=== PATIENT | female | born 1955 | race African-American/Black ===

== ENCOUNTER → 2016-10-13 | Outpatient (CLI) | payer OTHER ==
[~2016-10-13] MED LIST: CYMB60CA; DOXE150C7; DYAZ37.5; ESZO3TAB4; HYDR-3366 PO; LYRI100C; METF500T; TRAZ100T4; ULTR50TA5
[2016-10-13 09:49] LABS: AUTOMATED NEUTROPHIL # 4.1 TH/MM3 (1.8-7.7); BASOPHIL # 0.1 TH/MM3 (0-0.2); BASOPHIL % 0.9 % (0.0-2.0); EOSINOPHIL # 0.2 TH/MM3 (0-0.4); EOSINOPHIL % 2.3 % (0.0-4.0); HEMATOCRIT 35.9 % (35.0-46.0); HEMO FLAGS DIFF FINAL; LYMPH % 41.3 % (9.0-44.0); LYMPHOCYTE # 3.6 TH/MM3 (1.0-4.8); MEAN CELL VOLUME 84.9 FL (80.0-100.0); MEAN CORPUSCULAR HEMOGLOBIN 28.1 PG (27.0-34.0); MEAN CORPUSCULAR HGB CONC 33.1 % (32.0-36.0); MONO % 7.8 % (0.0-8.0); NEUT % 47.7 % (16.0-70.0); PLATELET COUNT 324 TH/MM3 (150-450); RED BLOOD COUNT 4.23 MIL/MM3 (4.00-5.30); RED CELL DISTRIBUTION WIDTH 14.2 % (11.6-17.2); WHITE BLOOD COUNT 8.7 TH/MM3 (4.0-11.0)
[2016-10-13 10:04] LABS: AMPHETAMINE, URINE NEG (NEG); BARBITURATES, URINE NEG (NEG); COCAINE, URINE NEG (NEG)
[2016-10-13 10:15] LABS: ALKALINE PHOSPHATASE 114 U/L (45-117); ALT (GPT) 22 U/L (10-53); ANION GAP 8 MEQ/L (5-15); AST (GOT) 13 U/L (15-37); BICARBONATE 26.2 MEQ/L (21.0-32.0); BLOOD UREA NITROGEN 16 MG/DL (7-18); CHLORIDE 103 MEQ/L (98-107); FREE T4 1.07 NG/DL (0.76-1.46); GLOMERULAR FILTRATION RATE 46 ML/MIN (>89); GLUCOSE,FASTING 98 MG/DL (74-99); LDL CHOLESTEROL 125 MG/DL (0-99); SODIUM (NA) 137 MEQ/L (136-145); TOTAL BILIRUBIN ADULT 0.2 MG/DL (0.2-1.0)
[2016-10-13 13:32] LABS: HEMOGLOBIN A1a 1.6 %; HEMOGLOBIN A1b 2.2 %; HEMOGLOBIN Ao 83.6 %; HEMOGLOBIN P3 3.8 %
== END ==
LOC: CLAB 09:16
DX: Z79.899 Other long term (current) drug therapy (principal)
CPT/HCPCS: 36415; 80053; 80061; 80307; 83036; 84439; 84443; 85025

== ENCOUNTER 2017-03-04 10:58 | Inpatient (IN) | payer SELFPAY ==
[2017-03-04] VITALS (10 sets, daily range): BP systolic 112–155; BP diastolic 59–95; PULSE 101–127; RESP 20–26; TEMP 97.4–100.6; O2SAT 87–95
[~2017-03-04] VITALS: Ht 170.2 cm; Wt 104.7 kg
[2017-03-04] MEDS ORDERED: ESZO1TAB PO (11:13)
[2017-03-04] MEDS ORDERED: cefTRIAXone INJ 1,000 MG in SODIUM CHLORIDE 0.9% INJ 100 ML IV ONE (11:30)
[2017-03-04] MEDS ORDERED: SODIUM CHLORIDE 0.9% FLUSH 10 ML FLUSH IVF PRN (11:30)
[2017-03-04] MEDS ORDERED: AZITHROMYCIN INJ 500 MG in SODIUM CHLOR 0.9% 250 ML INJ 250 ML IV ONE (11:30)
[2017-03-04] MEDS ORDERED: methylPREDNISolone SOD SUCC 125 MG/2 ML VIAL IVP ONE (11:30)
--- NOTE | 2017-03-04 11:34 | PD ---
HPI Chief Complaint: Cold / Flu Symptoms Time Seen by Provider: 11:26 Travel History International Travel<30 days: No Contact w/Intl Traveler<30days: No Traveled to known affect area: No History of Present Illness HPI Patient presents with complaints of shortness of breath and productive cough productive of green phlegm. Subjective fever. History of COPD. Continues to smoke a pack per day. Denies nausea vomiting or diarrhea. No new rashes. Initial O2 sat of 87%. History of diabetes. Compliant with metformin. Patient has O2 at home 1 L to use as needed. PFSH Past Medical History Asthma: Yes Anxiety: Yes Depression: Yes Cancer: No Cardiovascular Problems: No COPD: Yes Diabetes: Yes Diminished Hearing: No Endocrine: Yes Genitourinary: No Hepatitis: No Hiatal Hernia: No Herniated Disk: Yes Hypertension: Yes Immune Disorder: No Neurologic: No Psychiatric: Yes (anxiety and depression at times) Reproductive: No Respiratory: Yes (copd) Pneumonia: Yes Thyroid Disease: No Menopausal: Yes : 3 Para: 4 Tubal Ligation: Yes Past Surgical History AICD: No Body Medical Devices: hardware in the left ankle Section: Yes (x 2) Gynecologic Surgery: Yes Joint Replacement: No Pacemaker: No Other Surgery: No Social History Alcohol Use: No Tobacco Use: Yes (1 PPD) Substance Use: No Allergies-Medications (Allergen,Severity, Reaction): Coded Allergies: *MDRO Multi-Drug Resistant Organism (Verified Adverse Reaction, Unknown, ) MRSA PCR (nares) negative - 12/03/15 & 12/06/15. Cleared per Infection Control MRSA (leg wound) - 05/24/04 Reported Meds & Prescriptions Reported Meds & Active Scripts Active Reported Lunesta (Eszopiclone) 2 Mg Tab 3 Mg PO HS PRN Celestine (Hydrocodone-Acetaminophen) 10-325 Mg Tab 1 Tab PO Q6H PRN Lyrica (Pregabalin) 100 Mg Cap Doxepin (Doxepin HCl) [address] (Duloxetine HCl) 60 Mg Capdr Dyazide (Triamterene-Hydrochlorothiazide) 37.5-25 Mg Cap Review of Systems General / Constitutional: No: Fever Eyes: No: Visual changes HENT: No: Headaches Cardiovascular: No: Chest Pain or Discomfort Respiratory: Positive: Cough, Shortness of Breath Gastrointestinal: No: Abdominal Pain Genitourinary: No: Dysuria Musculoskeletal: No: Pain Skin: No Rash Neurologic: No: Weakness Psychiatric: No: Depression Endocrine: No: Polydipsia Hematologic/Lymphatic: No: Easy Bruising Physical Exam Narrative GENERAL: Well-nourished, well-developed patient. Ill-appearing SKIN: Focused skin assessment warm/dry. HEAD: Normocephalic. EYES: No scleral icterus. No injection or drainage. NECK: Supple, trachea midline. No JVD or lymphadenopathy. CARDIOVASCULAR: Regular rate and rhythm without murmurs, gallops, or rubs. RESPIRATORY: Decreased breath sounds right lower lobe. No accessory muscle use. GASTROINTESTINAL: Abdomen soft, non-tender, nondistended. MUSCULOSKELETAL: No cyanosis, or edema. BACK: Nontender without obvious deformity. No CVA tenderness. Data Data Last Documented VS Vital Signs Date Time Temp Pulse Resp B/P Pulse Ox O2 Delivery O2 Flow Rate FiO2 03/04/17 11:48 94 Nasal Cannula 3.00 03/04/17 11:20 22 03/04/17 11:01 98.8 127 149/63 Orders Complete Blood Count With Diff (03/04/17 11:26) Comprehensive Metabolic Panel (03/04/17 11:26) B-Type Natriuretic Peptide (03/04/17 11:26) D-Dimer (03/04/17 11:26) Blood Culture (03/04/17 11:26) Iv Access Insert/Monitor (03/04/17 11:26) Ecg Monitoring (03/04/17 11:26) Oximetry (03/04/17 11:26) Oxygen Administration (03/04/17 11:26) Chest, Single Ap (03/04/17 11:26) Sodium Chloride 0.9% Flush (Ns Flush) (03/04/17 11:30) Methylprednisolone So Succ Inj (Solumedr (03/04/17 11:30) Albuterol Neb (Albuterol Neb) (03/04/17 11:30) Lactic Acid Sepsis Protocol (03/04/17 11:26) Azithromycin Inj (Zithromax Inj) (03/04/17 11:30) Ceftriaxone Inj (Rocephin Inj) (03/04/17 11:30) Electrocardiogram (03/04/17 ) Labs Laboratory Tests Test 03/04/17 11:20 White Blood Count 16.4 TH/MM3 Red Blood Count 4.41 MIL/MM3 Hemoglobin 12.0 GM/DL Hematocrit 36.6 % Mean Corpuscular Volume 83.0 FL Mean Corpuscular Hemoglobin 27.2 PG Mean Corpuscular Hemoglobin 32.8 % Concent Red Cell Distribution Width 14.6 % Platelet Count 299 TH/MM3 Mean Platelet Volume 8.5 FL Neutrophils (%) (Auto) 78.5 % Lymphocytes (%) (Auto) 13.9 % Monocytes (%) (Auto) 6.9 % Eosinophils (%) (Auto) 0.3 % Basophils (%) (Auto) 0.4 % Neutrophils # (Auto) 12.9 TH/MM3 Lymphocytes # (Auto) 2.3 TH/MM3 Monocytes # (Auto) 1.1 TH/MM3 Eosinophils # (Auto) 0.0 TH/MM3 Basophils # (Auto) 0.1 TH/MM3 CBC Comment DIFF FINAL Differential Comment Sodium Level 140 MEQ/L Potassium Level 4.2 MEQ/L Chloride Level 105 MEQ/L Carbon Dioxide Level 26.5 MEQ/L Anion Gap 9 MEQ/L Blood Urea Nitrogen 10 MG/DL Random Glucose 131 MG/DL Calcium Level 8.8 MG/DL Albumin 3.2 GM/DL [facility] Medical Decision Making Medical Screen Exam Complete: Yes Emergency Medical Condition: Yes Differential Diagnosis COPD exacerbation, pneumonia, respiratory failure Narrative Course Assessment and plan discussed with patient at bedside. EKG reveals sinus tachycardia rate of 117. Chest x-ray shows early pneumonia right lower lobe. Elevated white count noted. Sepsis Criteria SIRS Criteria (2 or more): Heart rate over 90, WBC > 63643, < 4000 or > 10% bands Physician Communication Physician Communication Spoke with Dr. Richards who is in agreement will admit Diagnosis Primary Impression: Pneumonia Qualified Code: J18.1 - Pneumonia of right lower lobe due to infectious organism Tyrone Plummer MD Mar 04, 2017 11:34
[2017-03-04] MEDS: RESP: ALBUTEROL 2.5 MG/3 ML NEB (SCH) INH (11:45)
[2017-03-04 11:47] LABS: AUTOMATED NEUTROPHIL # 12.9 TH/MM3 (1.8-7.7); BASOPHIL # 0.1 TH/MM3 (0-0.2); BASOPHIL % 0.4 % (0.0-2.0); EOSINOPHIL % 0.3 % (0.0-4.0); HEMATOCRIT 36.6 % (35.0-46.0); LYMPH % 13.9 % (9.0-44.0); LYMPHOCYTE # 2.3 TH/MM3 (1.0-4.8); MEAN CORPUSCULAR HEMOGLOBIN 27.2 PG (27.0-34.0); MEAN CORPUSCULAR HGB CONC 32.8 % (32.0-36.0); MONO % 6.9 % (0.0-8.0); NEUT % 78.5 % (16.0-70.0); PLATELET COUNT 299 TH/MM3 (150-450); RED BLOOD COUNT 4.41 MIL/MM3 (4.00-5.30); RED CELL DISTRIBUTION WIDTH 14.6 % (11.6-17.2); WHITE BLOOD COUNT 16.4 TH/MM3 (4.0-11.0)
--- NOTE | 2017-03-04 11:52 | RADRPT ---
EXAM DATE/TIME: 03/04/2017 11:43 [place] COMPARISON: CHEST SINGLE AP, December 08, 2015, 5:19. INDICATIONS : Short of breath, cough MEDICAL HISTORY : Chronic obstructive pulmonary disease. Diabetes mellitus type II. SURGICAL HISTORY : None. ENCOUNTER: Initial ACUITY: 1 week PAIN SCORE: 0/10 LOCATION: Bilateral chest FINDINGS: A single AP erect portable view of the chest was obtained and demonstrates patchy opacity at the righ t lung base. The left lung appears clear. The heart size is mildly prominent. Overlying electrocardio gram leads are noted. The costophrenic angles are not well visualized. The bony thorax is intact. CONCLUSION: Patchy opacity at the right lung base of concern for early pneumonia. Jonathan Black MD on March 04, 2017 at 11:50 Board Certified Radiologist. This report was verified electronically.
[2017-03-04 11:53] LABS: HEMO FLAGS DIFF FINAL
[2017-03-04 11:58] LABS: CHLORIDE 105 MEQ/L (98-107); POTASSIUM 4.2 MEQ/L (3.5-5.1); SODIUM (NA) 140 MEQ/L (136-145)
[2017-03-04] MEDS ORDERED: ACETAMINOPHEN 325 MG TAB PO PRN ×2 (12:00→12:15)
[2017-03-04] MEDS ORDERED: ACETAMINOPHEN 650 MG SUPP PR PRN (12:00)
[2017-03-04 12:01] LABS: ANION GAP 9 MEQ/L (5-15); BICARBONATE 26.5 MEQ/L (21.0-32.0)
[2017-03-04 12:02] LABS: BLOOD UREA NITROGEN 10 MG/DL (7-18)
[2017-03-04 12:04] LABS: ALT (GPT) 29 U/L (10-53)
[2017-03-04 12:05] LABS: AST (GOT) 27 U/L (15-37); GLOMERULAR FILTRATION RATE 51 ML/MIN (>89)
[2017-03-04 12:06] LABS: TOTAL BILIRUBIN ADULT 0.7 MG/DL (0.2-1.0)
[2017-03-04 12:08] LABS: ALKALINE PHOSPHATASE 138 U/L (45-117)
[2017-03-04] MEDS ORDERED: SODIUM CHLORIDE 0.9% FLUSH 10 ML FLUSH IV FLUSH PRN (12:15)
[2017-03-04] MEDS ORDERED: ONDANSETRON HCL 4 MG/2 ML VIAL IV PRN (12:15)
[2017-03-04] MEDS ORDERED: guaiFENesin/DEXTROMETHORPHAN 200 MG/20 MG/10 ML CUP PO PRN (12:15)
[2017-03-04] MEDS: HEPARIN SODIUM - SQ 10,000 UNITS/ML VIAL SQ SCH (12:16)
[2017-03-04] MEDS: RESP: ALBUTEROL 2.5 MG/IPRATROPIUM 0.5 MG NEB (PRN) INH ×3 (15:35→23:00)
[2017-03-04] MEDS ORDERED: CYMB60CA PO (16:07)
[2017-03-04] MEDS ORDERED: GLUCAGON 1 MG/ML VIAL OTHER PRN (16:15)
[2017-03-04] MEDS ORDERED: DEXTROSE 50% IN WATER 50 ML VIAL(D50) IV PRN (16:15)
--- NOTE | 2017-03-04 16:15 | HHI.HP ---
HPI Service [facility] Primary Care Physician No Primary Care Physician Admission Diagnosis pneumonia Diagnoses: Chief Complaint: Shortness of breath Travel History International Travel<30 Days: No Contact w/Intl Traveler <30 Da: No Traveled to Known Affected Are: No History of Present Illness 61-year-old female with a medical history significant for COPD, diabetes, lifelong tobacco abuser presents with complaint of shortness of breath and productive green sputum for the past couple of days. Patient report chills last night. Subjective fevers. She continues to smoke 1 pack per day. Symptoms worsen this morning which prompted the emergency room visit. On arrival she was hypoxemic with O2 saturation at 87%. She uses oxygen at home as needed. She denies chest pain. Review of Systems Constitutional: COMPLAINS OF: Fever, Chills Respiratory: COMPLAINS OF: Cough, Sputum production, Shortness of breath Cardiovascular: DENIES: Chest pain, Palpitations Except as stated in HPI: all other systems reviewed are Neg Past Family Social History Past Medical History COPD Diabetes Tobacco abuse Past Surgical History Neck surgery Left foot surgery Reported Medications Reported Meds & Active Scripts Active Reported Lunesta (Eszopiclone) 2 Mg Tab 3 Mg PO HS PRN [place] (Hydrocodone-Acetaminophen) 10-325 Mg Tab 1 Tab PO Q6H PRN Lyrica (Pregabalin) 100 Mg Cap Doxepin (Doxepin HCl) [address] (Duloxetine HCl) 60 Mg Capdr Dyazide (Triamterene-Hydrochlorothiazide) 37.5-25 Mg Cap Allergies: Coded Allergies: *MDRO Multi-Drug Resistant Organism (Verified Adverse Reaction, Unknown, ) MRSA PCR (nares) negative - 12/03/15 & 12/06/15. Cleared per Infection Control MRSA (leg wound) - 05/24/04 Family History Reviewed and noncontributory Social History Smoke 1 pack of cigarettes per day, denies alcohol or illicit drugs. Physical Exam Vital Signs Vital Signs Date Time Temp Pulse Resp B/P Pulse Ox O2 Delivery O2 Flow Rate FiO2 03/04/17 14:14 97.4 105 21 134/76 93 03/04/17 13:13 98.0 110 20 112/60 94 Nasal Cannula 3 03/04/17 12:20 100.6 112 22 120/60 94 Nasal Cannula 3 03/04/17 12:09 116 26 119/59 94 Nasal Cannula 3 03/04/17 11:48 94 Nasal Cannula 3.00 03/04/17 11:20 93 Nasal Cannula 3 03/04/17 11:20 22 93 Nasal Cannula 3 03/04/17 11:20 20 93 Nasal Cannula 3 03/04/17 11:01 98.8 127 149/63 87 Physical Exam GENERAL: This is a well-nourished, well-developed patient, in no apparent distress. SKIN: No rashes, ecchymoses or lesions. Cool and dry. HEAD: Atraumatic. Normocephalic. No temporal or scalp tenderness. EYES: Pupils equal round and reactive. Extraocular motions intact. No scleral icterus. No injection or drainage. ENT: Nose without bleeding, purulent drainage or septal hematoma. Throat without erythema, tonsillar hypertrophy or exudate. Uvula midline. Airway patent. NECK: Trachea midline. No JVD or lymphadenopathy. Supple, nontender, no meningeal signs. CARDIOVASCULAR: Regular rate and rhythm without murmurs, gallops, or rubs. RESPIRATORY: Diminished breath sounds bilaterally. There are some prominent rhonchi at the right base. No wheezing GASTROINTESTINAL: Abdomen soft, non-tender, nondistended. No hepato-splenomegaly , or palpable masses. No guarding. MUSCULOSKELETAL: Extremities without clubbing, cyanosis, or edema. No joint tenderness, effusion, or edema noted. No calf tenderness. Negative Homans sign bilaterally. NEUROLOGICAL: Awake and alert. Cranial nerves II through XII intact. Motor and sensory grossly within normal limits. Five out of 5 muscle strength in all muscle groups. Normal speech. Laboratory Laboratory Tests Test 03/04/17 03/04/17 11:20 11:25 White Blood Count 16.4 Red Blood Count 4.41 Hemoglobin 12.0 Hematocrit 36.6 Mean Corpuscular Volume 83.0 Mean Corpuscular Hemoglobin 27.2 Mean Corpuscular Hemoglobin 32.8 Concent Red Cell Distribution Width 14.6 Platelet Count 299 Mean Platelet Volume 8.5 Neutrophils (%) (Auto) 78.5 Lymphocytes (%) (Auto) 13.9 Monocytes (%) (Auto) 6.9 Eosinophils (%) (Auto) 0.3 Basophils (%) (Auto) 0.4 Neutrophils # (Auto) 12.9 Lymphocytes # (Auto) 2.3 Monocytes # (Auto) 1.1 Eosinophils # (Auto) 0.0 Basophils # (Auto) 0.1 CBC Comment DIFF FINAL Differential Comment D-Dimer Quantitative (PE/DVT) 1.54 Sodium Level 140 Potassium Level 4.2 Chloride Level 105 Carbon Dioxide Level 26.5 Anion Gap 9 Blood Urea Nitrogen 10 Creatinine 1.30 Estimat Glomerular Filtration 51 Rate Random Glucose 131 Calcium Level 8.8 Total Bilirubin 0.7 Aspartate Amino Transf 27 (AST/SGOT) Alanine Aminotransferase 29 (ALT/SGPT) Alkaline Phosphatase 138 B-Type Natriuretic Peptide 23 Total Protein 8.8 Albumin 3.2 Lactic Acid Level 0.9 Date/Time Procedure Status Source Growth 03/04/17 13:14 Gram Stain Received Sputum Expectorated Sputum Pending 03/04/17 13:14 Sputum Culture Received Sputum Expectorated Sputum Pending 03/04/17 11:25 Aerobic Blood Culture Received Blood Peripheral Pending 03/04/17 11:25 Anaerobic Blood Culture Received Blood Peripheral Pending Result Diagram: 03/04/17 1120 03/04/17 1120 Imaging Last Impressions Chest X-Ray 03/04/17 1126 Signed Impressions: Service Date/Time: Saturday, March 04, 2017 11:43 - CONCLUSION: Patchy opacity at the right lung base of concern for early pneumonia. Jonathan Black MD Assessment and Plan Problem List: (1) Pneumonia ICD Code: J18.9 Status: Acute Plan: Community-acquired pneumonia. Chest x-ray images reviewed. Right lung base opacity noted. Continue Rocephin and azithromycin. Follow blood and sputum cultures Supplemental oxygen as needed. Breathing treatments as needed. Incentive spirometry. (2) Hypertension ICD Code: I10 Status: Acute Plan: Blood pressure within normal limits. Continue to monitor. Will introduce antihypertensives if needed. (3) Diabetes ICD Code: E11.9 Status: Acute Plan: Patient reports she was previously on metformin but was taken because of her kidney functions. Sliding scale insulin with Accu-Cheks Check hemoglobin A1c. (4) CKD (chronic kidney disease) ICD Code: N18.9 Status: Acute Physician Certification 2 Midnight Certification Type: Admission for Inpatient Services Order for Inpatient Services The services are ordered in accordance with Medicare regulations or non- Medicare payer requirements, as applicable. In the case of services not specified as inpatient-only, they are appropriately provided as inpatient services in accordance with the 2-midnight benchmark. Estimated LOS (days): 2 days is the estimated time the patient will need to remain in the hospital, assuming treatment plan goals are met and no additional complications. Post-Hospital Plan: Home Problem Qualifiers (1) Pneumonia: Qualified Code: J18.1 - Pneumonia of right lower lobe due to infectious organism (2) CKD (chronic kidney disease): Qualified Code: N18.3 - Stage 3 chronic kidney disease Nish Richards MD Mar 04, 2017 16:15
[2017-03-04] MEDS ORDERED: ESZOPICLONE 3 MG TAB PO PRN (16:45)
[2017-03-04] MEDS: ACETAMINOPHEN/HYDROcodone 325 MG/10 MG TAB PO PRN (19:55)
[2017-03-04] MEDS: SODIUM CHLORIDE 0.9% FLUSH 10 ML FLUSH IV FLUSH SCH (19:56)
[2017-03-04] MEDS ORDERED: DOXEPIN HCL 50 MG CAP PO SCH (21:00)
[2017-03-04] MEDS: INSULIN ASPART SUPPLEMENTAL SCALE SQ SCH (21:01)
[2017-03-05] MEDS: HEPARIN SODIUM - SQ 10,000 UNITS/ML VIAL SQ SCH (00:49)
[2017-03-05 01:04] VITALS: BP 152/83; PULSE 113; RESP 26; TEMP 96.7; O2SAT 90
[2017-03-05 04:14] VITALS: BP 121/69; PULSE 95; RESP 24; TEMP 96.4; O2SAT 97
[2017-03-05] MEDS: INSULIN ASPART SUPPLEMENTAL SCALE SQ SCH (06:16)
[2017-03-05] MEDS: ACETAMINOPHEN/HYDROcodone 325 MG/10 MG TAB PO PRN ×2 (06:19→10:15)
[2017-03-05 06:50] LABS: POTASSIUM 4.7 MEQ/L (3.5-5.1)
[2017-03-05 06:54] LABS: AUTOMATED NEUTROPHIL # 14.4 TH/MM3 (1.8-7.7); BASOPHIL % 0.2 % (0.0-2.0); BICARBONATE 27.6 MEQ/L (21.0-32.0); EOSINOPHIL # 0.1 TH/MM3 (0-0.4); EOSINOPHIL % 0.9 % (0.0-4.0); HEMATOCRIT 36.2 % (35.0-46.0); LYMPH % 8.5 % (9.0-44.0); LYMPHOCYTE # 1.4 TH/MM3 (1.0-4.8); MEAN CELL VOLUME 83.8 FL (80.0-100.0); MEAN CORPUSCULAR HEMOGLOBIN 27.3 PG (27.0-34.0); MEAN CORPUSCULAR HGB CONC 32.5 % (32.0-36.0); NEUT % 86.4 % (16.0-70.0); PLATELET COUNT 305 TH/MM3 (150-450); RED BLOOD COUNT 4.32 MIL/MM3 (4.00-5.30); RED CELL DISTRIBUTION WIDTH 15.1 % (11.6-17.2); WHITE BLOOD COUNT 16.6 TH/MM3 (4.0-11.0)
[2017-03-05 07:07] LABS: HEMO FLAGS DIFF FINAL
[2017-03-05 07:30] VITALS: O2SAT 94
[2017-03-05 08:00] VITALS: BP 157/81; PULSE 104; RESP 20; TEMP 97.5; O2SAT 94
[2017-03-05] MEDS: SODIUM CHLORIDE 0.9% FLUSH 10 ML FLUSH IV FLUSH SCH (08:36)
[2017-03-05] MEDS ORDERED: AZITHROMYCIN 250 MG TAB PO SCH (09:00)
[2017-03-05] MEDS ORDERED: cefTRIAXone INJ 1,000 MG in SODIUM CHLORIDE 0.9% INJ 100 ML IV SCH (09:00)
[2017-03-05] MEDS ORDERED: DULoxetine HCl DR 60 MG CAP PO SCH (09:00)
--- NOTE | 2017-03-05 09:35 | HHI.PR ---
Subjective Remarks Patient reports she is feeling much better. Ready to go home. Coughing less. No shortness of breath. No fevers or chills. Objective Vitals Vital Signs Date Time Temp Pulse Resp B/P Pulse Ox O2 Delivery O2 Flow Rate FiO2 03/05/17 07:30 94 Nasal Cannula 2.00 03/05/17 07:19 20 03/05/17 04:14 96.4 95 24 121/69 97 03/05/17 01:04 96.7 113 26 152/83 90 03/04/17 20:52 98.0 103 20 142/95 95 03/04/17 19:40 94 Nasal Cannula 2.00 03/04/17 16:00 97.5 101 20 155/80 95 03/04/17 14:14 97.4 105 21 134/76 93 03/04/17 13:13 98.0 110 20 112/60 94 Nasal Cannula 3 03/04/17 12:20 100.6 112 22 120/60 94 Nasal Cannula 3 03/04/17 12:09 116 26 119/59 94 Nasal Cannula 3 03/04/17 11:48 94 Nasal Cannula 3.00 03/04/17 11:20 93 Nasal Cannula 3 03/04/17 11:20 22 93 Nasal Cannula 3 03/04/17 11:20 20 93 Nasal Cannula 3 03/04/17 11:01 98.8 127 149/63 87 I/O 03/04/17 03/04/17 03/04/17 03/05/17 03/05/17 03/05/17 07:00 15:00 23:00 07:00 15:00 23:00 Intake Total 850 ml 0 ml 0 ml 100 ml Balance 850 ml 0 ml 0 ml 100 ml Intake Oral 500 ml IV Total 350 ml 0 ml 0 ml 100 ml # Voids 0 Result Diagram: 03/05/17 0550 03/05/17 0550 Imaging Last Impressions Chest X-Ray 03/04/17 1126 Signed Impressions: Service Date/Time: Saturday, March 04, 2017 11:43 - CONCLUSION: Patchy opacity at the right lung base of concern for early pneumonia. Jonathan Black MD Objective Remarks GENERAL: This is a well-nourished, well-developed patient, in no apparent distress. CARDIOVASCULAR: Normal rate and regular rhythm without murmurs, gallops, or rubs. RESPIRATORY: Good respiratory efforts. Diminished breath sounds at the bases. Otherwise clear to auscultation. GASTROINTESTINAL: Abdomen soft, non-tender, non-distended. Normal active bowel sounds MUSCULOSKELETAL: Extremities without cyanosis, or edema. NEURO: Alert & Oriented x4 to person, place, time, situation. Moves all ext x4 PSYCH: Appropriate mood and affect. A/P Problem List: (1) Pneumonia ICD Code: J18.9 Status: Acute Plan: Community-acquired pneumonia. Chest x-ray images reviewed. Right lung base opacity noted. Patient quickly improved with Rocephin and azithromycin. She can be discharged home to continue antibiotics with Cefuroxime and Azithromycin. (2) Hypertension ICD Code: I10 Status: Acute Plan: Blood pressure acceptable. Patient advised to follow up with PCP (3) Diabetes ICD Code: E11.9 Status: Acute Plan: Patient reports she was previously on metformin but was taken because of her kidney functions. Cr 1.10 Resume Metformin on discharge. Advised follow up outpatient with PCP. (4) CKD (chronic kidney disease) ICD Code: N18.9 Status: Acute Discharge Planning Patient quickly improved and deemed medically stable for discharge. Discharged home in stable condition Follow up with PCP Activity: Regular as tolerated Diet: Diabetic diet Meds: Per med rec Problem Qualifiers (1) Pneumonia: Qualified Code: J18.1 - Pneumonia of right lower lobe due to infectious organism (2) CKD (chronic kidney disease): Qualified Code: N18.3 - Stage 3 chronic kidney disease Nish Richards MD Mar 05, 2017 09:35
[2017-03-05] MEDS ORDERED: CEFU1TAB20 PO (09:41)
[2017-03-05] MEDS ORDERED: AZIT250T3 PO (09:41)
[2017-03-05] MEDS ORDERED: METF500T PO (09:43)
--- NOTE | 2017-03-05 09:44 | HHI.DCPOC ---
Discharge Care Plan Diagnosis: (1) Pneumonia (2) Hypertension (3) Diabetes Goals to Promote Your Health * To prevent worsening of your condition and complications * To maintain your health at the optimal level Directions to Meet Your Goals Take your medications as prescribed Follow your dietary instruction Follow activity as directed Keep your appointments as scheduled Take your immunizations and boosters as scheduled If your symptoms worsen call your PCP, if no PCP go to Urgent Care Center or Emergency Room Smoking is Dangerous to Your Health. Avoid second hand smoke Call the 24-hour hour crisis hotline for domestic abuse at Nish Richards MD Mar 05, 2017 09:44
[2017-03-05] MEDS ORDERED: DOXE150C7 PO (15:39)
--- NOTE | 2017-03-05 16:48 | EKG ---
Date Performed: 03/04/2017 Time Performed: 11:38:46 PTAGE: 61 years EKG: SINUS TACHYCARDIA POSSIBLE LEFT ATRIAL ENLARGEMENT ABNORMAL RHYTHM ECG PREVIOUS TRACING 03/05/2016 17.22.24 Since previous tracing, no significant change noted DOCTOR: Maryan Gaspar Interpretating Date/Time 03/05/2017 16:45:50
[2017-03-05 16:52] LABS: HEMOGLOBIN A1a 1.3 %; HEMOGLOBIN A1b 2.1 %; HEMOGLOBIN Ao 84.1 %; HEMOGLOBIN LA1C 1.7 %; HEMOGLOBIN P3 3.7 %
== END 2017-03-05 10:14 | disposition home or self-care (01) | DRG 190 ==
LOC: PHED 10:58 → PHEDA 12:04 → PH3B 13:45
PROVIDERS: ADMIT Family Medicine; ATTEND Family Medicine
DX: J44.0 Chronic obstructive pulmonary disease with (acute) lower respiratory infection (principal); J18.9 Pneumonia, unspecified organism; I12.9 Hypertensive chronic kidney disease with stage 1 through stage 4 chronic kidney disease, or unspecified chronic kidney disease; N18.9 Chronic kidney disease, unspecified; E11.9 Type 2 diabetes mellitus without complications; F17.210 Nicotine dependence, cigarettes, uncomplicated
CPT/HCPCS: 71010; 80048; 80053; 82948; 83036; 83605; 83880; 85025; 85379; 87040; 87070; 87186; 87205; 93005; 94150; 94640; 94664; 96365; 96375; J0456; J0696; J1644; J1815; J2930; J7050; J7613

== ENCOUNTER 2017-03-05 15:10 | Inpatient (IN) | payer SELFPAY ==
[~2017-03-05] VITALS: Ht 170.2 cm; Wt 111.1 kg
[~2017-03-05 15:10] MED LIST changes: +AZIT250T3 PO; +CEFU1TAB20 PO; -CYMB60CA; +CYMB60CA PO; +ESZO1TAB PO; -ESZO3TAB4; -METF500T; +METF500T PO; -TRAZ100T4; -ULTR50TA5
[2017-03-05] MEDS ORDERED: DOXE150C7 PO (15:39)
[2017-03-05] MEDS ORDERED: MAGNESIUM HYDROXIDE SUSP 30 ML CUP PO PRN (15:45)
[2017-03-05] MEDS ORDERED: LACTULOSE SYRUP 20 GM/30 ML CUP PO PRN (15:45)
[2017-03-05] MEDS ORDERED: NALOXONE HCL 0.4 MG/ML AMP IV PRN (15:45)
[2017-03-05] MEDS ORDERED: ACETAMINOPHEN 325 MG TAB PO PRN (15:45)
[2017-03-05] MEDS ORDERED: SODIUM CHLORIDE 0.9% FLUSH 10 ML FLUSH IV FLUSH PRN (15:45)
[2017-03-05] MEDS ORDERED: BISACODYL 10 MG SUPP RECTAL PRN (15:45)
[2017-03-05] MEDS ORDERED: SENNOSIDES 8.6 MG TAB PO PRN (15:45)
[2017-03-05] MEDS ORDERED: VANCOMYCIN INJ 1,000 MG in SODIUM CHLOR 0.9% 250 ML INJ 250 ML IV SCH (15:45)
--- NOTE | 2017-03-05 15:59 | HHI.HP ---
[facility] Phys[facility] Non-Staff Admission Diagnosis Diagnoses: Chief Complaint: Bacteremia Travel History International Travel<30 Days: No Contact w/Intl Traveler <30 Da: No History of Present Illness 61 Y/O female admitted yesterday for pneumonia. The patient quickly improved and was discharged earlier today. However he 2/ blood cultures came back positive for gram pos. cocci. Patient was called back for readmission for IV antibiotics, follow up blood cultures and ID consult. Refer to H&P from yesterday for details. Past Family Social History Past Medical History COPD Diabetes Tobacco abuse Past Surgical History Neck surgery Left foot surgery Allergies: Coded Allergies: *MDRO Multi-Drug Resistant Organism (Verified Adverse Reaction, Unknown, ) MRSA PCR (nares) negative - 12/03/15 & 12/06/15. Cleared per Infection Control MRSA (leg wound) - 05/24/04 Social History Smoke 1 pack of cigarettes per day, denies alcohol or illicit drugs. Physical Exam Physical Exam GENERAL: This is a well-nourished, well-developed patient, in no apparent distress. CARDIOVASCULAR: Normal rate and regular rhythm without murmurs, gallops, or rubs. RESPIRATORY: Good respiratory efforts. Diminished breath sounds at the bases. Otherwise clear to auscultation. GASTROINTESTINAL: Abdomen soft, non-tender, non-distended. Normal active bowel sounds MUSCULOSKELETAL: Extremities without cyanosis, or edema. NEURO: Alert & Oriented x4 to person, place, time, situation. Moves all ext x4 PSYCH: Appropriate mood and affect. Assessment and Plan Problem List: (1) Pneumonia ICD Code: J18.9 Status: Acute (2) Bacteremia ICD Code: R78.81 Status: Acute Assessment and Plan 61 Y/O female with: Pneumonia Community-acquired pneumonia. Chest x-ray images reviewed. Right lung base opacity noted. Patient quickly improved with Rocephin and azithromycin. She was discharged earlier today, However her blood cultures growing gram pos cocci. Continue Rocephin, add Vanc until further speciation of cultures. Consult ID. Breathing treatment and supplemental oxygen as needed. Bacteremia: Source is probably pneumonia. Consult ID. Continue Rocephin, add Vanc until further speciation of cultures. Consult ID. Hypertension Blood pressure acceptable. Continue to monitor Diabetes SSI with accuchecks. A1C pending. CKD (chronic kidney disease) Stable. Avoid nephrotoxins. Physician Certification 2 Midnight Certification Type: Admission for Inpatient Services Order for Inpatient Services The services are ordered in accordance with Medicare regulations or non- Medicare payer requirements, as applicable. In the case of services not specified as inpatient-only, they are appropriately provided as inpatient services in accordance with the 2-midnight benchmark. Estimated LOS (days): 3 days is the estimated time the patient will need to remain in the hospital, assuming treatment plan goals are met and no additional complications. Post-Hospital Plan: Home Nish Richards MD Mar 05, 2017 15:59
[2017-03-05 16:26] VITALS: BP 153/79; PULSE 103; RESP 20; TEMP 98.2; O2SAT 93
[2017-03-05 16:39] VITALS: O2SAT 96
[2017-03-05] MEDS ORDERED: Vancomycin Consult Pharmacy 1 EA OTHER SCH (17:00)
[2017-03-05] MEDS: VANCOMYCIN INJ 1,500 MG in SODIUM CHLORID 0.9% 500 ML INJ 500 ML IV SCH (18:41)
[2017-03-05] MEDS: ONDANSETRON HCL 4 MG/2 ML VIAL IVP PRN (18:51)
[2017-03-05] MEDS: ACETAMINOPHEN/HYDROcodone 325 MG/10 MG TAB PO PRN (18:51)
[2017-03-05 19:48] VITALS: O2SAT 98
[2017-03-05 20:00] VITALS: BP 145/78; PULSE 94; RESP 20; TEMP 97.4; O2SAT 94
[2017-03-05] MEDS: DOCUSATE SODIUM 50 MG/SENNA 8.6 MG TAB PO SCH (20:37)
[2017-03-05] MEDS: SODIUM CHLORIDE 0.9% FLUSH 10 ML FLUSH IV FLUSH SCH (20:37)
[2017-03-05] MEDS ORDERED: ESZOPICLONE 1 MG TAB PO PRN (21:00)
[2017-03-05] MEDS: HEPARIN SODIUM - SQ 10,000 UNITS/ML VIAL SQ SCH (21:38)
[2017-03-05] MEDS ORDERED: RESP: ALBUTEROL 2.5 MG/IPRATROPIUM 0.5 MG NEB (PRN) NEB (23:45)
[2017-03-05] MEDS: DOXEPIN HCL 50 MG CAP PO SCH (23:55)
[2017-03-06] MEDS: ACETAMINOPHEN/HYDROcodone 325 MG/10 MG TAB PO PRN ×4 (04:02→22:47)
[2017-03-06 05:41] LABS: AUTOMATED NEUTROPHIL # 13.2 TH/MM3 (1.8-7.7); BASOPHIL # 0.1 TH/MM3 (0-0.2); BASOPHIL % 0.3 % (0.0-2.0); EOSINOPHIL % 0.2 % (0.0-4.0); HEMATOCRIT 32.7 % (35.0-46.0); LYMPH % 15.8 % (9.0-44.0); LYMPHOCYTE # 2.7 TH/MM3 (1.0-4.8); MEAN CELL VOLUME 83.3 FL (80.0-100.0); MEAN CORPUSCULAR HEMOGLOBIN 27.4 PG (27.0-34.0); MEAN CORPUSCULAR HGB CONC 32.8 % (32.0-36.0); MONO % 6.6 % (0.0-8.0); NEUT % 77.1 % (16.0-70.0); PLATELET COUNT 311 TH/MM3 (150-450); RED BLOOD COUNT 3.92 MIL/MM3 (4.00-5.30); RED CELL DISTRIBUTION WIDTH 14.6 % (11.6-17.2); WHITE BLOOD COUNT 17.1 TH/MM3 (4.0-11.0)
[2017-03-06 05:51] LABS: POTASSIUM 4.1 MEQ/L (3.5-5.1)
[2017-03-06 05:57] LABS: BICARBONATE 28.5 MEQ/L (21.0-32.0)
[2017-03-06 05:59] LABS: HEMO FLAGS DIFF FINAL
[2017-03-06] MEDS ORDERED: DEXTROSE 50% IN WATER 50 ML VIAL(D50) IV PRN (07:30)
[2017-03-06] MEDS ORDERED: GLUCAGON 1 MG/ML VIAL OTHER PRN (07:30)
[2017-03-06 08:03] VITALS: O2SAT 96
[2017-03-06] MEDS: SODIUM CHLORIDE 0.9% FLUSH 10 ML FLUSH IV FLUSH SCH ×2 (08:18→21:13)
[2017-03-06] MEDS: HEPARIN SODIUM - SQ 10,000 UNITS/ML VIAL SQ SCH ×2 (08:18→21:12)
[2017-03-06] MEDS: DOCUSATE SODIUM 50 MG/SENNA 8.6 MG TAB PO SCH ×2 (08:19→21:11)
[2017-03-06] MEDS: DULoxetine HCl DR 60 MG CAP PO SCH (08:19)
[2017-03-06 08:26] VITALS: BP 134/71; PULSE 90; RESP 19; TEMP 96.6; O2SAT 96
[2017-03-06] MEDS ORDERED: cefTRIAXone INJ 1,000 MG in SODIUM CHLORIDE 0.9% INJ 100 ML IV SCH (09:00)
[2017-03-06] MEDS: INSULIN ASPART SUPPLEMENTAL SCALE SQ SCH ×3 (11:00→21:00)
--- NOTE | 2017-03-06 11:00 | HHI.PR ---
Subjective Remarks Patient reports she is feeling okay today except for being tired. No increased in shortness of breath. No chest pain. Objective Vitals Vital Signs Date Time Temp Pulse Resp B/P Pulse Ox O2 Delivery O2 Flow Rate FiO2 03/06/17 08:26 96.6 90 19 134/71 96 03/06/17 08:03 96 Nasal Cannula 1.00 03/06/17 08:00 96 Nasal Cannula 2.00 03/05/17 20:00 97.4 94 20 145/78 94 03/05/17 20:00 94 Nasal Cannula 2.00 03/05/17 19:48 98 Nasal Cannula 2.00 03/05/17 16:39 96 Nasal Cannula 2.00 03/05/17 16:26 98.2 103 20 153/79 93 I/O 03/05/17 03/05/17 03/05/17 03/06/17 03/06/17 03/06/17 06:59 14:59 22:59 06:59 14:59 22:59 Intake Total 600 ml Balance 600 ml Intake Oral 600 ml # Voids 2 # Bowel Movements 0 Result Diagram: 03/06/17 0445 03/06/175 Objective Remarks GENERAL: This is a well-nourished, well-developed patient, in no apparent distress. CARDIOVASCULAR: Normal rate and regular rhythm without murmurs, gallops, or rubs. RESPIRATORY: Good respiratory efforts. Diminished breath sounds at the bases. Otherwise clear to auscultation. GASTROINTESTINAL: Abdomen soft, non-tender, non-distended. Normal active bowel sounds MUSCULOSKELETAL: Extremities without cyanosis, or edema. NEURO: Alert & Oriented x4 to person, place, time, situation. Moves all ext x4 PSYCH: Appropriate mood and affect. A/P Problem List: (1) Pneumonia ICD Code: J18.9 Status: Acute (2) Bacteremia ICD Code: R78.81 Status: Acute Assessment and Plan 61 Y/O female with: Strep Pneumonia Community-acquired pneumonia. Chest x-ray images reviewed. Right lung base opacity noted. Patient quickly improved with Rocephin and azithromycin. She was discharged on , However her blood cultures growing gram pos cocci. She was called back and readmitted the same day Continue Rocephin, add Vanc until further speciation of cultures. Consult ID. Breathing treatment and supplemental oxygen as needed. Strep Pneumo Bacteremia: Source is probably pneumonia. Consult ID. Continue Rocephin, add Vanc until further speciation of cultures. Consult ID. Hypertension Blood pressure acceptable. Continue to monitor Diabetes SSI with accuchecks. A1C 6.3. CKD (chronic kidney disease) Stable. Avoid nephrotoxins. Nish Richards MD Mar 06, 2017 11:00
[2017-03-06 12:25] VITALS: BP 125/67; PULSE 89; RESP 19; TEMP 97.4; O2SAT 94
[2017-03-06] MEDS: VANCOMYCIN INJ 1,500 MG in SODIUM CHLORID 0.9% 500 ML INJ 500 ML IV SCH (12:34)
--- NOTE | 2017-03-06 13:08 | PD.ID.CON ---
History of Present Illness Service ID Consult Requested By Dr Mcelroy Reason for Consult bacteremia Primary Care Physician Non-Staff Diagnoses: History of Present Illness pt is a poor historian History obtained form the chart 61 yo tobacco +, diabetic female with h/o COPD ( oxygen at home as needed.), admitted 2 days ago for pneumonia, SHe initially presented with complaint of shortness of breath and productive green sputum for the past couple of days, chills and subjective fevers. On arrival to ER she was hypoxemic with O2 saturation at 87%. She continues to smoke 1 pack per day. Pt quickly improved and was discharged yday. on po abx (cefuroxim, azithro) However her / blood cultures came back positive for gram pos. cocci. Patient was called back for readmission for IV antibiotics, follow up blood cultures and she was readmitted yday Today her blood clx growing strep pneumo 2/2 sets along with sputum clx Sensitivities P Review of Systems Except as stated in HPI: all other systems reviewed are Neg Past Family Social History Allergies: Coded Allergies: *MDRO Multi-Drug Resistant Organism (Verified Adverse Reaction, Unknown, ) MRSA PCR (nares) negative - 12/03/15 & 12/06/15. Cleared per Infection Control MRSA (leg wound) - 05/24/04 Past Medical History COPD Diabetes Tobacco abuse Past Surgical History Neck surgery Left foot surgery Active Ordered Medications Medications where reviewed in EMR Antibiotics Include: CFTX vancomycin Family History reviewed; noncontributory Social History Smoke 1 pack of cigarettes per day, denies alcohol or illicit drugs. Physical Exam Vital Signs Vital Signs Date Time Temp Pulse Resp B/P Pulse Ox O2 Delivery O2 Flow Rate FiO2 03/06/17 12:25 97.4 89 19 125/67 94 03/06/17 08:26 96.6 90 19 134/71 96 03/06/17 08:03 96 Nasal Cannula 1.00 03/06/17 08:00 96 Nasal Cannula 2.00 03/05/17 20:00 97.4 94 20 145/78 94 03/05/17 20:00 94 Nasal Cannula 2.00 03/05/17 19:48 98 Nasal Cannula 2.00 03/05/17 16:39 96 Nasal Cannula 2.00 03/05/17 16:26 98.2 103 20 153/79 93 Physical Exam CONSTITUTIONAL/GENERAL: This is an obese elderly patient, in no apparent distress. TUBES/LINES/DRAINS: SKIN: No jaundice, rashes, or lesions. Skin temperature appropriate. Not diaphoretic. HEAD: Atraumatic. Normocephalic. EYES: Pupils equal and round and reactive. Extraocular motions intact. No scleral icterus. No injection or drainage. Fundi not examined. ENT: Hearing grossly normal. Nose without bleeding or purulent drainage. Throat without visible erythema, exudates, masses, or lesions. NECK: Trachea midline. Supple, nontender. No palpable thyroid enlargement or nodularity. CARDIOVASCULAR: Regular rate and rhythm without murmurs, gallops, or rubs. No JVD. Peripheral pulses symmetric. RESPIRATORY/CHEST: Symmetric, unlabored respirations. Clear to auscultation. Breath sounds diminisdhed. No wheezes, rales, or rhonchi. GASTROINTESTINAL: Abdomen soft, non-tender, nondistended. No hepato-splenomegaly , or palpable masses. No guarding. Bowel sounds present. MUSCULOSKELETAL: Extremities without clubbing, cyanosis, or edema. No joint tenderness or effusion noted. No calf tenderness. No mottling or clubbing. LYMPHATICS: No palpable cervical or supraclavicular adenopathy. NEUROLOGICAL: Awake and alert. Motor and sensory grossly within normal limits. Follows commands. Clear speech. Moves all extremities. PSYCHIATRIC: No obvious anxiety/depression. no apparent hallucinations or other psychotic thought process. Laboratory Laboratory Tests Test 03/06/17 04:45 White Blood Count 17.1 Red Blood Count 3.92 Hemoglobin 10.7 Hematocrit 32.7 Mean Corpuscular Volume 83.3 Mean Corpuscular Hemoglobin 27.4 Mean Corpuscular Hemoglobin 32.8 Concent Red Cell Distribution Width 14.6 Platelet Count 311 Mean Platelet Volume 8.4 Neutrophils (%) (Auto) 77.1 Lymphocytes (%) (Auto) 15.8 Monocytes (%) (Auto) 6.6 Eosinophils (%) (Auto) 0.2 Basophils (%) (Auto) 0.3 Neutrophils # (Auto) 13.2 Lymphocytes # (Auto) 2.7 Monocytes # (Auto) 1.1 Eosinophils # (Auto) 0.0 Basophils # (Auto) 0.1 CBC Comment DIFF FINAL Differential Comment Sodium Level 144 Potassium Level 4.1 Chloride Level 109 Carbon Dioxide Level 28.5 Anion Gap 7 Blood Urea Nitrogen 20 Creatinine 0.86 Estimat Glomerular Filtration 81 Rate Random Glucose 123 Calcium Level 8.9 Date/Time Procedure Status Source Growth 03/06/17 10:10 Aerobic Blood Culture Received Blood Peripheral Pending 03/06/17 10:10 Anaerobic Blood Culture Received Blood Peripheral Pending Result Diagram: 03/06/17 0445 03/06/17 0445 Imaging CXR from 03/04 was reviewed: showing RLL patchy opacity Assessment and Plan Assessment and Plan Strep pneumo bacteremic PNA, RLL COPD, active smoker pt statetes she was not immunised against pneumococcus cont CFTX 2 gm daily cont vanco for now P sensitivity report fu repeat blood cultures final rec's per sensitivity report Debbie Wise MD Mar 06, 2017 13:08
[2017-03-06] MEDS ORDERED: cefTRIAXone INJ 1,000 MG in SODIUM CHLORIDE 0.9% INJ 100 ML IV ONE (13:15)
[2017-03-06 17:01] VITALS: BP 130/67; PULSE 93; RESP 19; TEMP 97.1; O2SAT 95
[2017-03-06 21:00] VITALS: BP 110/70; PULSE 92; RESP 20; TEMP 97.8; O2SAT 94
[2017-03-06] MEDS ORDERED: ESZOPICLONE 3 MG TAB PO PRN (21:00)
[2017-03-06] MEDS: DOXEPIN HCL 50 MG CAP PO SCH (21:11)
[2017-03-06] MEDS: ONDANSETRON HCL 4 MG/2 ML VIAL IVP PRN (21:12)
[2017-03-06 21:55] VITALS: O2SAT 95
[2017-03-07] VITALS (8 sets, daily range): BP systolic 110–178; BP diastolic 54–80; PULSE 76–104; RESP 15–20; TEMP 97–98; O2SAT 92–99
[2017-03-07] MEDS: ACETAMINOPHEN/HYDROcodone 325 MG/10 MG TAB PO PRN ×3 (05:54→18:33)
[2017-03-07] MEDS: VANCOMYCIN INJ 1,500 MG in SODIUM CHLORID 0.9% 500 ML INJ 500 ML IV SCH (05:54)
[2017-03-07 06:04] LABS: POTASSIUM 4.4 MEQ/L (3.5-5.1)
[2017-03-07 06:05] LABS: BICARBONATE 31.9 MEQ/L (21.0-32.0)
[2017-03-07 06:12] LABS: HEMATOCRIT 33.9 % (35.0-46.0); MEAN CELL VOLUME 83.3 FL (80.0-100.0); MEAN CORPUSCULAR HEMOGLOBIN 27.3 PG (27.0-34.0); MEAN CORPUSCULAR HGB CONC 32.8 % (32.0-36.0); PLATELET COUNT 316 TH/MM3 (150-450); RED BLOOD COUNT 4.07 MIL/MM3 (4.00-5.30); RED CELL DISTRIBUTION WIDTH 14.4 % (11.6-17.2); REVIEW FLAG FINAL
[2017-03-07] MEDS: INSULIN ASPART SUPPLEMENTAL SCALE SQ SCH ×4 (06:53→21:00)
[2017-03-07] MEDS ORDERED: cefTRIAXone INJ 2,000 MG in SODIUM CHLORIDE 0.9% INJ 100 ML IV SCH (08:00)
[2017-03-07] MEDS: DOCUSATE SODIUM 50 MG/SENNA 8.6 MG TAB PO SCH ×2 (09:00→21:00)
[2017-03-07] MEDS: DULoxetine HCl DR 60 MG CAP PO SCH (09:25)
[2017-03-07] MEDS: HEPARIN SODIUM - SQ 10,000 UNITS/ML VIAL SQ SCH ×2 (09:26→21:00)
[2017-03-07] MEDS: SODIUM CHLORIDE 0.9% FLUSH 10 ML FLUSH IV FLUSH SCH ×2 (09:26→21:27)
--- NOTE | 2017-03-07 12:20 | HHI.PR ---
Subjective Remarks Patient reports feeling okay today. Wants to go home. Feels tired. Objective Vitals Vital Signs Date Time Temp Pulse Resp B/P Pulse Ox O2 Delivery O2 Flow Rate FiO2 03/07/17 09:15 97.3 85 20 137/74 93 03/07/17 08:15 92 Nasal Cannula 1.00 03/07/17 07:05 Nasal Cannula 1.00 03/07/17 04:00 94 03/07/17 00:00 97.0 94 20 110/54 98 03/06/17 21:55 95 Nasal Cannula 1.00 03/06/17 21:00 Nasal Cannula 1.00 03/06/17 21:00 97.8 92 20 110/70 94 03/06/17 17:50 20 03/06/17 17:01 97.1 93 19 130/67 95 03/06/17 12:25 97.4 89 19 125/67 94 I/O 03/06/17 03/06/17 03/06/17 03/07/17 03/07/17 03/07/17 07:00 15:00 23:00 07:00 15:00 23:00 Intake Total 600 ml 500 ml 609 ml 240 ml Balance 600 ml 500 ml 609 ml 240 ml Intake Oral 600 ml 240 ml 240 ml IV Total 500 ml 369 ml 0 ml # Voids 2 # Bowel Movements 0 Result Diagram: 03/07/1752403/07/17524 Objective Remarks GENERAL: This is a well-nourished, well-developed patient, in no apparent distress. CARDIOVASCULAR: Normal rate and regular rhythm without murmurs, gallops, or rubs. RESPIRATORY: Good respiratory efforts. Diminished breath sounds at the bases. Otherwise clear to auscultation. GASTROINTESTINAL: Abdomen soft, non-tender, non-distended. Normal active bowel sounds MUSCULOSKELETAL: Extremities without cyanosis, or edema. NEURO: Alert & Oriented x4 to person, place, time, situation. Moves all ext x4 PSYCH: Appropriate mood and affect. A/P Problem List: (1) Pneumonia ICD Code: J18.9 Status: Acute (2) Bacteremia ICD Code: R78.81 Status: Acute Assessment and Plan 61 Y/O female with: Strep Pneumonia Community-acquired pneumonia. Chest x-ray images reviewed. Right lung base opacity noted. Patient quickly improved with Rocephin and azithromycin. She was discharged on , However her blood cultures growing gram pos cocci. She was called back and readmitted the same day Infectious disease following. Recommend stopping Rocephin, continue vancomycin. Patient started on oral Levaquin. Plan to discharge on oral Levaquin for 14 days. Breathing treatment and supplemental oxygen as needed. Strep Pneumo Bacteremia: Source is probably pneumonia. ID followed the patient. See recommendations above. Repeat blood cultures negative so far. Hypertension Blood pressure acceptable. Continue to monitor Diabetes SSI with accuchecks. A1C 6.3. CKD (chronic kidney disease) Stable. Avoid nephrotoxins. Discharge Planning Possible discharge tomorrow if she continues to improve. Nish Richards MD Mar 07, 2017 12:20
--- NOTE | 2017-03-07 14:56 | HHI.IDPN ---
Subjective Subjective Remarks 61 yo tobacco +, diabetic female with h/o COPD ( oxygen at home as needed.), admitted 2 days ago for pneumonia, SHe initially presented with complaint of shortness of breath and productive green sputum for the past couple of days, chills and subjective fevers. On arrival to ER she was hypoxemic with O2 saturation at 87%. Had fever. CXR with R PNA. Sputum and BC with Pneumococcus Notes reviewed No fever Cough better, brings up white phlegm No CP No New (+) BC WBC down to 12 BC with Pneumococcus I to Rocephin Antibiotics Rocephin Vancomycin Lines PIV Past Medical History COPD Diabetes Tobacco abuse Past Surgical History Neck surgery Left foot surgery Allergies: Coded Allergies: *MDRO Multi-Drug Resistant Organism (Verified Adverse Reaction, Unknown, ) MRSA PCR (nares) negative - 12/03/15 & 12/06/15. Cleared per Infection Control MRSA (leg wound) - 05/24/04 Objective . Vital Signs Date Time Temp Pulse Resp B/P Pulse Ox O2 Delivery O2 Flow Rate FiO2 03/07/17 14:27 97.8 104 18 178/80 93 03/07/17 13:19 18 03/07/17 09:15 97.3 85 20 137/74 93 03/07/17 08:15 92 Nasal Cannula 1.00 03/07/17 07:05 Nasal Cannula 1.00 03/07/17 04:00 94 03/07/17 00:00 97.0 94 20 110/54 98 03/06/17 21:55 95 Nasal Cannula 1.00 03/06/17 21:00 Nasal Cannula 1.00 03/06/17 21:00 97.8 92 20 110/70 94 03/06/17 17:01 97.1 93 19 130/67 95 03/06/17 03/06/17 03/07/17 15:00 23:00 07:00 Intake Total 500 ml 609 ml 240 ml Balance 500 ml 609 ml 240 ml Intake Oral 240 ml 240 ml IV Total 500 ml 369 ml 0 ml . Laboratory Tests Test 03/06/17 03/07/17 04:45 05:25 White Blood Count 17.1 TH/MM3 12.0 TH/MM3 Red Blood Count 3.92 MIL/MM3 4.07 MIL/MM3 Hemoglobin 10.7 GM/DL 11.1 GM/DL Hematocrit 32.7 % 33.9 % Mean Corpuscular Volume 83.3 FL 83.3 FL Mean Corpuscular Hemoglobin 27.4 PG 27.3 PG Mean Corpuscular Hemoglobin 32.8 % 32.8 % Concent Red Cell Distribution Width 14.6 % 14.4 % Platelet Count 311 TH/MM3 316 TH/MM3 Mean Platelet Volume 8.4 FL 8.4 FL Neutrophils (%) (Auto) 77.1 % Lymphocytes (%) (Auto) 15.8 % Monocytes (%) (Auto) 6.6 % Eosinophils (%) (Auto) 0.2 % Basophils (%) (Auto) 0.3 % Neutrophils # (Auto) 13.2 TH/MM3 Lymphocytes # (Auto) 2.7 TH/MM3 Monocytes # (Auto) 1.1 TH/MM3 Eosinophils # (Auto) 0.0 TH/MM3 Basophils # (Auto) 0.1 TH/MM3 CBC Comment DIFF FINAL Differential Comment Laboratory Tests Test 03/06/17 03/07/17 04:45 05:25 Sodium Level 144 MEQ/L 142 MEQ/L Potassium Level 4.1 MEQ/L 4.4 MEQ/L Chloride Level 109 MEQ/L 107 MEQ/L Carbon Dioxide Level 28.5 MEQ/L 31.9 MEQ/L Anion Gap 7 MEQ/L 3 MEQ/L Blood Urea Nitrogen 20 MG/DL 18 MG/DL Creatinine 0.86 MG/DL 0.97 MG/DL Estimat Glomerular Filtration 81 ML/MIN 71 ML/MIN Rate Random Glucose 123 MG/DL 98 MG/DL Calcium Level 8.9 MG/DL 8.6 MG/DL Microbiology Date/Time Procedure Status Source Growth 03/06/17 10:10 Aerobic Blood Culture - Preliminary Resulted Blood Peripheral NO GROWTH IN 1 DAY 03/06/17 10:10 Anaerobic Blood Culture - Preliminary Resulted Blood Peripheral NO GROWTH IN 1 DAY Physical Exam CONSTITUTIONAL/GENERAL: Obese, NAD SKIN: No jaundice, rashes, or lesions. Skin temperature appropriate. Not diaphoretic. HEAD: Atraumatic. Normocephalic. EYES: Pupils equal and round and reactive. Extraocular motions intact. No scleral icterus. No injection or drainage. ENT: Hearing grossly normal. Nose without bleeding or purulent drainage. Throat without visible erythema, exudates, masses, or lesions. NECK: Trachea midline. Supple, nontender. No palpable thyroid enlargement or nodularity. CARDIOVASCULAR: Regular rate and rhythm without murmurs, gallops, or rubs. RESPIRATORY/CHEST: Decreased BS at bases, no wheezing GASTROINTESTINAL: Abdomen soft, non-tender, nondistended. No hepato-splenomegaly , or palpable masses. No guarding. Bowel sounds present. MUSCULOSKELETAL: Extremities without clubbing, cyanosis, or edema. No calf tenderness. NEUROLOGICAL: Non-focal PSYCHIATRIC: Cooperative LINE: NO evidence of infection Assessment & Plan Remarks Strep pneumo bacteremic PNA, RLL - better - temps down, cough better - WBC down COPD, active smoker PLAN Stop Rocephin Continue vanco today PO Levaquin If no problem overnight, D/C home on Levaquin and give 14 days Explained plan to patient D/W Dr Richards (HEPAS) Paige Abrams MD Mar 07, 2017 14:56
[2017-03-07] MEDS: LEVOFLOXACIN 750 MG TAB PO SCH (17:20)
[2017-03-07] MEDS: DOXEPIN HCL 50 MG CAP PO SCH (21:27)
[2017-03-07] MEDS ORDERED: VANCOMYCIN TROUGH ONE (23:45)
[2017-03-08] VITALS: BP 157/95; PULSE 85; RESP 20; TEMP 97.3; O2SAT 96
[2017-03-08] MEDS: VANCOMYCIN INJ 1,500 MG in SODIUM CHLORID 0.9% 500 ML INJ 500 ML IV SCH (00:13)
[2017-03-08] MEDS: ACETAMINOPHEN/HYDROcodone 325 MG/10 MG TAB PO PRN (03:13)
[2017-03-08] MEDS: INSULIN ASPART SUPPLEMENTAL SCALE SQ SCH (06:40)
[2017-03-08 08:00] VITALS: BP 142/78; PULSE 93; RESP 20; TEMP 98; O2SAT 96
[2017-03-08] MEDS ORDERED: LEVA750T9 PO (08:38)
--- NOTE | 2017-03-08 08:39 | HHI.DS ---
Discharge Summary Admission Date Mar 05, 2017 at 15:10 Discharge Date: Mar 08, 2017 Admitting Diagnosis (1) Pneumonia ICD Code: J18.9 (2) Bacteremia ICD Code: R78.81 Procedures None Brief History - From Admission 61 Y/O female admitted yesterday for pneumonia. The patient quickly improved and was discharged earlier today. However he 2/4 blood cultures came back positive for gram pos. cocci. Patient was called back for readmission for IV antibiotics, follow up blood cultures and ID consult. Refer to H&P from yesterday for details. CBC/BMP: 03/07/17 0525 03/07/17 0525 Significant Findings Laboratory Tests Test 03/06/17 03/07/17 03/08/17 04:45 05:25 00:10 White Blood Count 17.1 TH/MM3 12.0 TH/MM3 (4.0-11.0) (4.0-11.0) Red Blood Count 3.92 MIL/MM3 (4.00-5.30) Hemoglobin 10.7 GM/DL 11.1 GM/DL (11.6-15.3) (11.6-15.3) Hematocrit 32.7 % 33.9 % (35.0-46.0) (35.0-46.0) Neutrophils (%) (Auto) 77.1 % (16.0-70.0) Neutrophils # (Auto) 13.2 TH/MM3 (1.8-7.7) Monocytes # (Auto) 1.1 TH/MM3 (0-0.9) Chloride Level 109 MEQ/L (98-107) Blood Urea Nitrogen 20 MG/DL (7-18) Estimat Glomerular Filtration 81 ML/MIN (>89) 71 ML/MIN (>89) Rate Random Glucose 123 MG/DL (74-106) Anion Gap 3 MEQ/L (5-15) Vancomycin Level Trough 11.5 MCG/ML (5.0-10.0) PE at Discharge GENERAL: This is a well-nourished, well-developed patient, in no apparent distress. CARDIOVASCULAR: Normal rate and regular rhythm without murmurs, gallops, or rubs. RESPIRATORY: Good respiratory efforts. Diminished breath sounds at the bases. Otherwise clear to auscultation. GASTROINTESTINAL: Abdomen soft, non-tender, non-distended. Normal active bowel sounds MUSCULOSKELETAL: Extremities without cyanosis, or edema. NEURO: Alert & Oriented x4 to person, place, time, situation. Moves all ext x4 PSYCH: Appropriate mood and affect. Pt update on day of discharge Patient reports she is feeling great. She is requesting to go home. No fevers or chills. No increase in shortness of breath. Cough is about the same. Hospital Course 61 Y/O female admitted and treated for strep pneumonia and strep pneumo bacteremia. Evaluation and treatment course detailed below: Strep Pneumonia Community-acquired pneumonia. Chest x-ray images reviewed. Right lung base opacity noted. Patient quickly improved with Rocephin and azithromycin. She was discharged on , However her blood cultures growing gram pos cocci. She was called back and readmitted the same day Infectious disease followed the patient. Recommend stopping Rocephin, continue vancomycin. Patient started on oral Levaquin and discharged on the same for 14 days per infectious disease recommendations. Strep Pneumo Bacteremia: Source is probably pneumonia. ID followed the patient. See recommendations above. Repeat blood cultures negative so far. Hypertension Blood pressure acceptable. Continue to monitor Diabetes SSI with accuchecks inpatient. Resume home medication. A1C 6.3. CKD (chronic kidney disease) Stable. Pt Condition on Discharge: Good Discharge Disposition: Discharge Home Discharge Time: <= 30 minutes Discharge Instructions DIET: Follow Instructions for: Diabetic Diet Activities you can perform: Regular-No Restrictions New Medications: Levofloxacin (Levaquin) 750 Mg Tablet 750 MG PO DAILY #14 TAB Continued Medications: Doxepin (Doxepin) 150 Mg Cap 150 MG PO HS #[address] (Cymbalta DR) 60 Mg Capdr 60 MG PO DAILY #60 TAB Eszopiclone (Lunesta) 2 Mg Tab 3 MG PO HS PRN INSOMNIA Ref 0 TAB Hydrocodone-Acetaminophen (Corea) 10-325 Mg Tab 1 TAB PO Q6H PRN PAIN Ref 0 TAB Metformin (Metformin) 500 Mg Tab 500 MG PO BIDPC With meals Blood Sugar Management #60 Ref 0 TAB Pregabalin (Lyrica) 100 Mg Cap #90 Triamterene-Hydrochlorothiazide (Dyazide) 37.5-25 Mg Cap #30 Discontinued Medications: Azithromycin (Azithromycin) 250 Mg Tab 250 MG PO DAILY #4 TAB Cefuroxime (Cefuroxime) 500 Mg Tab 500 MG PO BID Infection #14 Ref 0 TAB Nish Richards MD Mar 08, 2017 08:39
--- NOTE | 2017-03-08 08:39 | HHI.DCPOC ---
Discharge Care Plan Diagnosis: (1) Pneumonia (2) Bacteremia (3) Hypertension (4) Diabetes Goals to Promote Your Health * To prevent worsening of your condition and complications * To maintain your health at the optimal level Directions to Meet Your Goals Take your medications as prescribed Follow your dietary instruction Follow activity as directed Keep your appointments as scheduled Take your immunizations and boosters as scheduled If your symptoms worsen call your PCP, if no PCP go to Urgent Care Center or Emergency Room Smoking is Dangerous to Your Health. Avoid second hand smoke Call the 24-hour hour crisis hotline for domestic abuse at Nish Richards MD Mar 08, 2017 08:39
[2017-03-08] MEDS: LEVOFLOXACIN 750 MG TAB PO SCH (08:54)
[2017-03-08] MEDS: SODIUM CHLORIDE 0.9% FLUSH 10 ML FLUSH IV FLUSH SCH (08:56)
[2017-03-08] MEDS: DULoxetine HCl DR 60 MG CAP PO SCH (08:56)
[2017-03-08] MEDS: HEPARIN SODIUM - SQ 10,000 UNITS/ML VIAL SQ SCH (08:56)
[2017-03-08] MEDS: DOCUSATE SODIUM 50 MG/SENNA 8.6 MG TAB PO SCH (08:56)
[2017-03-08 08:57] VITALS: O2SAT 93
== END 2017-03-08 09:24 | disposition home or self-care (01) | DRG 190 ==
LOC: PH3B 15:10
PROVIDERS: ADMIT Family Medicine; ATTEND Family Medicine
DX: J44.0 Chronic obstructive pulmonary disease with (acute) lower respiratory infection (principal); J15.4 Pneumonia due to other streptococci; R78.81 Bacteremia; E11.22 Type 2 diabetes mellitus with diabetic chronic kidney disease; I12.9 Hypertensive chronic kidney disease with stage 1 through stage 4 chronic kidney disease, or unspecified chronic kidney disease; N18.9 Chronic kidney disease, unspecified; F17.210 Nicotine dependence, cigarettes, uncomplicated
CPT/HCPCS: 80048; 80202; 82948; 85025; 85027; 87040; J0696; J1644; J2405; J3370; J7040

== ENCOUNTER 2017-12-05 13:37 | Emergency (ER) | payer SELFPAY ==
[~2017-12-05] VITALS: Ht 172.7 cm; Wt 100.0 kg
[~2017-12-05 13:37] MED LIST changes: -AZIT250T3 PO; -CEFU1TAB20 PO; +DOXE150C2 PO; -DOXE150C7; -ESZO1TAB PO; +ESZO2 PO; +LEVA750T9 PO
[2017-12-05 13:39] VITALS: BP 136/80; PULSE 105; RESP 20; TEMP 98.8; O2SAT 96
[2017-12-05] MEDS ORDERED: LIDOCAINE 1%/EPINEPHrine 1:100,000 SOLN 20 ML VIAL INFIL ONE (14:00)
[2017-12-05] MEDS ORDERED: TETANUS/DIPHTHERIA TOXOID ADULT 0.5 ML VIAL IM ONE (14:00)
--- NOTE | 2017-12-05 14:00 | PD ---
HPI Chief Complaint: Fall Time Seen by Provider: 13:47 Travel History International Travel<30 days: No Contact w/Intl Traveler<30days: No Traveled to known affect area: No History of Present Illness HPI Patient comes to the emergency department for evaluation after mechanical fall that occurred this morning. Patient initially did not want to come however her children made her. Patient reports she was walking down steps into her garage when her foot hit something causing her to lose her balance and fall. Patient reports hitting the right side of her head but denies loss of consciousness. Denies being on any blood thinners. Denies any pain out of the ordinary. Denies any chest pain pre-or post fall. Patient reports only pain is around laceration of her right heel as burning-like in nature. Patient reports pain is worse with walking or standing. Reports pain is not significant when she is resting it. Patient reports cleaning it with peroxide and an antiseptic. Patient is uncertain of her last tetanus shot. Denies any radiation of the pain. Denies any headache, change in vision, numbness tingling anywhere, loss change in bowel or bladder, or being on any blood thinners. Patient reports she has chronic neck and back pain that she sees pain management. PFSH Past Medical History Asthma: Yes Anxiety: No Depression: Yes Heart Rhythm Problems: No Cancer: No Cardiovascular Problems: Yes Chest Pain: Yes Congestive Heart Failure: No COPD: Yes Diabetes: Yes Diminished Hearing: No Endocrine: Yes GERD: No Genitourinary: No Hepatitis: No Hiatal Hernia: No Herniated Disk: Yes Hypertension: Yes Immune Disorder: No Kidney Stones: No Musculoskeletal: Yes Neurologic: No Psychiatric: Yes ( depression at times) Reproductive: No Respiratory: Yes (copd) Pneumonia: Yes Renal Failure: No Sickle Cell Disease: No Sleep Apnea: No Thyroid Disease: No Ulcer: No ?: Not Menopausal: Yes : 3 Para: 4 Tubal Ligation: Yes Past Surgical History Abdominal Surgery: No AICD: No Arteriovenous Shunt: No Body Medical Devices: hardware in the left ankle Cardiac Surgery: No Section: Yes (x 2) Ear Surgery: No Endocrine Surgery: No Eye Surgery: No Genitourinary Surgery: No Gynecologic Surgery: Yes ( x2) Insulin Pump: No Joint Replacement: No Oral Surgery: No Pacemaker: No Thoracic Surgery: No Other Surgery: No Social History Alcohol Use: No Tobacco Use: Yes (1 PPD) Substance Use: No Allergies-Medications (Allergen,Severity, Reaction): Coded Allergies: *MDRO Multi-Drug Resistant Organism (Verified Adverse Reaction, Unknown, ) MRSA PCR (nares) negative - 12/03/15 & 12/06/15. Cleared per Infection Control MRSA (leg wound) - 05/24/04 Reported Meds & Prescriptions Reported Meds & Active Scripts Active Clindamycin (Clindamycin HCl) 150 Mg Cap 2 Mg PO Q6H 7 Days Levaquin (Levofloxacin) 750 Mg Tablet 750 Mg PO DAILY Doxepin (Doxepin HCl) 150 Mg Cap 150 Mg PO HS Metformin (Metformin HCl) 500 Mg Tab 500 Mg PO BIDPC With meals Cymbalta DR (Duloxetine HCl) 60 Mg Capdr 60 Mg PO DAILY Reported Lunesta (Eszopiclone) 2 Mg Tab 3 Mg PO HS PRN Stockwell (Hydrocodone-Acetaminophen) 10-325 Mg Tab 1 Tab PO Q6H PRN Lyrica (Pregabalin) 100 Mg Cap Dyazide (Triamterene-Hydrochlorothiazide) 37.5-25 Mg Cap Review of Systems Except as stated in HPI: all other systems reviewed are Neg Physical Exam Narrative GENERAL: Well-developed, overly nourished, in no acute distress, and non-ill appearing. SKIN: Laceration noted right posterior heel. No foreign body or crepitus noted. Patient reports mild tenderness around laceration of the right heel. HEAD: Atraumatic. Normocephalic. EYES: Pupils equal and round. EOMI. No scleral icterus. No injection or drainage. ENT: No nasal bleeding or discharge. Mucous membranes pink and moist. NECK: Trachea midline. Supple. No nuclear rigidity. No tenderness or crepitus over midline cervical spine. CARDIOVASCULAR: Dorsal pulses 2+, intact, equal bilaterally. Capillary refill less than 2 seconds. RESPIRATORY: No accessory muscle use. No respiratory distress. MUSCULOSKELETAL: No obvious deformities. No clubbing. No cyanosis. No edema. Full range of motion. Ankle: Neagative anterior draw and Alegria test. Negative Katie's sign. No laxity noted with passive inversion and eversion of BL ankles. Negative squeeze test. Pulses equal BL distal to injury. Capillary refill less than 2 seconds distal to injury and equal BL. Sensation equal BL 1st web space. FROM of toes distal to injury and equal BL. NV intact distal to injury and equal BL. Dorsal pulses equal BL. NEUROLOGICAL: Awake and alert. No obvious cranial nerve deficits. Motor grossly within normal limits. Normal speech. PSYCHIATRIC: Appropriate mood and affect; insight and judgment normal. Data Data Last Documented VS Vital Signs Date Time Temp Pulse Resp B/P (MAP) Pulse Ox O2 Delivery O2 Flow Rate FiO2 12/05/17 13:39 98.8 105 20 136/80 (98) 96 Orders Orders Tetanus/Diphtheria Tox Adult (Tetanus/Di (12/05/17 14:00) Ct Brain W/O Iv Contrast(Rout) (12/05/17 ) Ct Cerv Spine W/O Contrast (12/05/17 ) Foot, Complete ([id number]) (12/05/17 ) Lidocai-Epi 1%-1:100,000 Inj (Xylocaine- (12/05/17 14:00) Spine, Cervical Fl/Ext Only (12/05/17 ) Ed Discharge Order (12/05/17 16:18) [facility] Medical Decision Making Medical Screen Exam Complete: Yes Emergency Medical Condition: Yes Interpretation(s) Last Impressions Head CT 12/05/17 0000 Signed Impressions: Service Date/Time: Tuesday, December 05, 2017 14:31 - CONCLUSION: 1. No acute intracranial abnormality identified. Jorge Srivastava MD Foot X-Ray 12/05/17 0000 Signed Impressions: Service Date/Time: Tuesday, December 05, 2017 14:26 - CONCLUSION: 1. No retained foreign body identified. No acute fracture. Jorge Srivastava MD Cervical Spine X-Ray 12/05/17 0000 Signed Impressions: Service Date/Time: Tuesday, December 05, 2017 15:59 - CONCLUSION: No abnormal motion segments. Arturo Srivastava MD FACR Cervical Spine CT 12/05/17 0000 Signed Impressions: Service Date/Time: Tuesday, December 05, 2017 14:31 - CONCLUSION: 1. There has been previous plating of the lamina on the left side of L4 and L5. The hardware is intact. There is a fracture through the lamina at its junction with the pedicle on the right side at L4. This is well aligned. The margins are indistinct and this may be chronic. I have no previous imaging through this area for comparison. Patient should be examined carefully in this area to ensure there is no direct pain over the site. Flexion extension films may be a consideration for more definitive assessment as well. 2. Advanced degenerative changes throughout the cervical spine as above. Jorge Srivastava MD Differential Diagnosis Fracture, strain, closed head injury, intracranial hemorrhage, laceration, retained foreign body, fall Narrative Course Patient presents with closed head injury. There was no evidence of cranial or intracranial injury noted on CT of the head and no evidence of fracture or injury to cervical spine on C-spine CT and x-rays with flexion-extension only. The patient has been behaving normally and no notable altered mental status. Moberly score of 15. The neurologic exam is normal. The patient is awake and aware and motor sensory exams are normal. There is no clinical evidence to support intracranial injury or bleed. The patient suffered laceration to the heel. There was no evidence to suggest foreign bodies. Visual, tactile and radiographic exams were unremarkable without evidence of foreign body at this time. There was no evidence of neurovascular injury. The patient had a normal distal vascular exam, and had full normal motor and sensory exams. There was also no evidence or tendon injury , with normal distal full range of motions, flexion, extension, abduction, adduction and opponens. There was no evidence of local joint space involvement at this time. The patient was irrigated with copious sterile normal saline and primary repair was performed. Please see procedure note. The patient was given signs and symptom warnings for infection, such as increasing pain, redness, swelling, associated heat, pus or fever. The patient was warned of possible unseen foreign body and instructed to return immediately if signs or symptoms develop. The patient was given instructions for timely follow up and for removal. The patient agreed with plan of care. Patient in no obvious distress upon re-evaluation. All pertinent Radiology result(s) discussed with patient/family. Patient was asked if they wanted to speak to my attending, which the patient did not wish to do at this time. Any questions/concerns in reference to patient diagnosis/condition discussed and clarified prior to patient's discharge. Reinforced sheer importance of close follow up with patient's primary physician or primary care clinic. Instructed patient to return to ED immediately, if symptoms return/worsen. Patient showed understanding of above instructions. Further instructions and recommendations were detailed in discharge paperwork. Patient ambulated without difficulty out of ED at discharge. Procedures Procedure Narrative LACERATION REPAIR LOCATION: Right heel LENGTH: Approximately 6 cm in total length NUMBER OF STITCHES/REMY: 6 simple mattresses REPAIR: Verbal consent was obtained. The area of the laceration was cleaned and prepped. The laceration was infiltrated with lidocaine with epi. The wound was copiously irrigated and explored without evidence of foreign body, bony involvement, ligament injury, tendon injury, or neurovascular injury. The wound was closed using 3-0 Ethilon. This was a single layer repair. A sterile dressing was applied by nurse. The patient was advised to keep the affected area as clean and dry as possible using soap and water. There were no complications. Patient tolerated the procedure well. Diagnosis Primary Impression: Closed head injury Qualified Codes: S09.90XA - Unspecified injury of head, initial encounter Additional Impressions: Laceration of heel Qualified Codes: S91.311A - Laceration without foreign body, right foot, initial encounter Fall Qualified Codes: W19.XXXA - Unspecified fall, initial encounter Patient Instructions: Care For Your Stitches (DC), Fall Prevention (ED), General Instructions, Head Injury (ED), Laceration (DC) Additional Instructions: Follow-up with your primary care physician next week for reevaluation. Return here in 2-3 weeks for suture removal. Take all medication as prescribed. Keep wound dry and clean as possible using soap and water. Use Neosporin to promote healing. Do not soak or submerge wound. Return to the emergency department if symptoms get worse. Med/Other Pt SpecificInfo: Prescription(s) given Scripts Clindamycin (Clindamycin) 150 Mg Cap 2 MG PO Q6H for Infection for 7 Days, CAP 0 Refills Prov: Shahid Jack MD 12/05/17 Disposition: 01 DISCHARGE HOME Condition: Stable Pablo Gallardo December 05, 2017 14:00
--- NOTE | 2017-12-05 14:40 | RADRPT ---
EXAM DATE/TIME: 12/05/2017 14:26 [facility] COMPARISON: CHEST SINGLE AP, March 04, 2017, 11:43. INDICATIONS : Right foot heel laceration after fall. MEDICAL HISTORY : None. SURGICAL HISTORY : None. ENCOUNTER: Initial ACUITY: 1 day PAIN SCORE: 9/10 LOCATION: Right foot, heel. FINDINGS: Three view examination of the right foot demonstrates no soft tissue swelling, dislocation, or fractu re. The tarsal bones appear intact. The interphalangeal and metatarsophalangeal joints are intact. The calcaneus is intact. Bony mineralization is normal. CONCLUSION: 1. No retained foreign body identified. No acute fracture. Jorge Srivastava MD on December 05, 2017 at 14:36 Board Certified Radiologist. This report was verified electronically.
--- NOTE | 2017-12-05 14:46 | RADRPT ---
EXAM DATE/TIME: 12/05/2017 14:31 [facility] COMPARISON: No previous studies available for comparison. INDICATIONS : Trauma, fall today. RADIATION DOSE: 56.35 CTDIvol (mGy) MEDICAL HISTORY : Hypertension. Chronic obstructive pulmonary disease. Diabetes mellitus type 2. SURGICAL HISTORY : Tubal ligation. ENCOUNTER: Initial ACUITY: 1 day PAIN SCALE: 5/10 LOCATION: cranial TECHNIQUE: Multiple contiguous axial images were obtained of the head. Using automated exposure control and adj ustment of the mA and/or kV according to patient size, radiation dose was kept as low as reasonably a chievable to obtain optimal diagnostic quality images. DICOM format image data is available electro nically for review and comparison. FINDINGS: CEREBRUM: The ventricles are normal for age. No evidence of midline shift, mass lesion, hemorrhage or acute in farction. No extra-axial fluid collections are seen. POSTERIOR FOSSA: The cerebellum and brainstem are intact. The 4th ventricle is midline. The cerebellopontine angle i s unremarkable. EXTRACRANIAL: The visualized portion of the orbits is intact. SKULL: The calvaria is intact. No evidence of skull fracture. CONCLUSION: 1. No acute intracranial abnormality identified. Jorge Srivastava MD on December 05, 2017 at 14:42 Board Certified Radiologist. This report was verified electronically.
--- NOTE | 2017-12-05 15:20 | RADRPT ---
EXAM DATE/TIME: 12/05/2017 14:31 [facility] COMPARISON: No previous studies available for comparison. INDICATIONS : Trauma, fall. Neck pain. RADIATION DOSE: 21.30 CTDIvol (mGy) MEDICAL HISTORY : Hypertension. Chronic obstructive pulmonary disease. Diabetes mellitus type 2. SURGICAL HISTORY : Tubal ligation. ENCOUNTER: Initial ACUITY: 1 day PAIN SCALE: 5/10 LOCATION: neck TECHNIQUE: Volumetric scanning of the cervical spine was performed. Multiplanar reconstructions in the sagittal, coronal and oblique axial planes were performed. Using automated exposure control and adjustment o f the mA and/or kV according to patient size, radiation dose was kept as low as reasonably achievable to obtain optimal diagnostic quality images. DICOM format image data is available electronically f or review and comparison. FINDINGS: The sagittal and coronal reformats demonstrate previous laminectomy with plating along the left side at L4 and L5. The hardware is intact. The examination does demonstrate nondisplaced fracture through the lamina on the right side at L4. Th e margins of this are quite indistinct and this is probably chronic. The overall alignment of the cer vical spine is adequate. There are severely degenerated disc at C3/4, C4/5, C5/6 and C6/7. C2-C3: The bony spinal canal is normal in size. No evidence of disc bulge or herniation. The neural forami na are bilaterally patent. C3-C4: The bony spinal canal is normal in size. No evidence of disc bulge or herniation. The neural forami na are bilaterally patent. C4-C5: The examination demonstrates plating involving the lamina of L4 and L5. There is fracture through the lamina on the right side at the L4 level. This may be chronic. There is an degenerated disc with a s mall disc bulge and diffuse osteophytic ridging. The residual thecal space and foramina appear adequa te. C5-C6: There is a plate evident along the lamina of L5. There is a degenerated disc at this level. There is mild osteophytic ridging and broad-based disc bulge. The thecal space and foramina appear adequate. C6-C7: There is a degenerated disc with broad-based disc bulge and diffuse osteophytic ridging. This just ef faces the ventral thecal sac. Residual thecal space is narrowed but adequate. There is mild bony fora minesh narrowing on the left. C7-T1: The bony spinal canal is normal in size. No evidence of disc bulge or herniation. The neural forami na are bilaterally patent. CONCLUSION: 1. There has been previous plating of the lamina on the left side of L4 and L5. The hardware is intac t. There is a fracture through the lamina at its junction with the pedicle on the right side at L4. T his is well aligned. The margins are indistinct and this may be chronic. I have no previous imaging t hrough this area for comparison. Patient should be examined carefully in this area to ensure there is no direct pain over the site. Flexion extension films may be a consideration for more definitive ass essment as well. 2. Advanced degenerative changes throughout the cervical spine as above. Jorge Srivastava MD on December 05, 2017 at 15:01 Board Certified Radiologist. This report was verified electronically.
--- NOTE | 2017-12-05 16:13 | RADRPT ---
EXAM DATE/TIME: 12/05/2017 15:59 [facility] COMPARISON: No previous studies available for comparison. INDICATIONS : Neck pain. MEDICAL HISTORY : Hypertension. Chronic obstructive pulmonary disease. Diabetes mellitus type 2. SURGICAL HISTORY : Tubal ligation. Neck surgery. ENCOUNTER: Initial ACUITY: 1 day PAIN SCORE: 5/10 LOCATION: Bilateral neck FINDINGS: There are degenerative changes in the cervical spine with previous spinal fixation at C4-C5. Flexion and extension views of the cervical spine were performed. Limited motion is evident. There are no abnormal motion segments. CONCLUSION: No abnormal motion segments. Arturo Srivastava MD FACR on December 05, 2017 at 16:07 Board Certified Radiologist. This report was verified electronically.
[2017-12-05] MEDS ORDERED: CLIN150C14 PO (16:17)
== END 2017-12-05 16:44 | disposition home or self-care (01) ==
LOC: NEPK 13:37
DX: S09.90XA Unspecified injury of head, initial encounter (principal); S91.311A Laceration without foreign body, right foot, initial encounter; F17.210 Nicotine dependence, cigarettes, uncomplicated; G89.29 Other chronic pain; M54.2 Cervicalgia; J44.9 Chronic obstructive pulmonary disease, unspecified; E11.9 Type 2 diabetes mellitus without complications; F32.9 Major depressive disorder, single episode, unspecified; I10 Essential (primary) hypertension; W10.8XXA Fall (on) (from) other stairs and steps, initial encounter; Y92.008 Other place in unspecified non-institutional (private) residence as the place of occurrence of the external cause; Z79.84 Long term (current) use of oral hypoglycemic drugs; Z23 Encounter for immunization
CPT/HCPCS: 12002; 70450; 72040; 72125; 73630; 90471; 90714